=== PATIENT | male | born 1975 | race Caucasian/White ===

== ENCOUNTER 2017-07-21 10:30 | Emergency (ER) | payer OTHER ==
[2017-07-21 10:47] VITALS: RESP 18
--- NOTE | 2017-07-21 10:57 | ED ---
Lower Extremity Injury HPI - General Chief Complaint: Extremity Injury, Lower Stated Complaint: Foot pain Time Seen by Provider: 07/21/17 10:48 Source: patient, RN notes reviewed Mode of arrival: ambulatory Limitations: no limitations - History of Present Illness Initial Comments: 42-year-old male presents with a chief complaint of left foot toe pain. Patient states he stepped wrong on the steps. Patient states that he has some pain on his left foot first digit along with swelling and ecchymosis. Patient states that denies any paresthesias. Patient states he is hammertoe he's had no procedures on his foot before. No prior toe fractures. - Related Data Home Medications Medication Instructions Recorded Confirmed Multivitamins, Thera [Multivitamin 1 tab PO DAILY 07/21/17 07/21/17 (formulary)] Pantoprazole Sodium 20 mg PO DAILY 07/21/17 07/21/17 Previous Rx's Medication Instructions Recorded Ibuprofen [Motrin] 600 mg PO Q8HR PRN #30 tab 07/21/17 Allergies Allergy/AdvReac Type Severity Reaction Status Date / Time bee venom protein (honey bee) AdvReac Swelling Verified 07/21/17 11:16 coffee (Coffea arabica) AdvReac Unknown Verified 07/21/17 11:16 BEER AdvReac Unknown Uncoded 07/21/17 11:16 RAW ONION AdvReac Unknown Uncoded 07/21/17 11:16 Review of Systems ROS Statement: Those systems with pertinent positive or pertinent negative responses have been documented in the HPI. ROS Other: All systems not noted in ROS Statement are negative. Past Medical History Additional Past Medical History / Comment(s): Legally blind History of Any Multi-Drug Resistant Organisms: None Reported Past Surgical History: Appendectomy Past Psychological History: No Psychological Hx Reported Smoking Status: Never smoker Past Alcohol Use History: Rare Past Drug Use History: None Reported General Exam Limitations: no limitations General appearance: alert, in no apparent distress Head exam: Present: atraumatic, normocephalic, normal inspection Neck exam: Present: normal inspection, full ROM. Absent: tenderness, meningismus, lymphadenopathy Respiratory exam: Present: normal lung sounds bilaterally. Absent: respiratory distress, wheezes, rales, rhonchi, stridor Cardiovascular Exam: Present: regular rate, normal rhythm, normal heart sounds. Absent: systolic murmur, diastolic murmur, rubs, gallop, clicks Extremities exam: Present: other (Left foot first digit there is ecchymosis at the MTP joint, tenderness palpation neurovascular intact there is no other tenderness of the foot) Course Vital Signs 07/21/17 10:45 Temperature 98.0 F Pulse Rate 77 Respiratory 18 Rate Blood Pressure 132/88 O2 Sat by Pulse 95 Oximetry Medical Decision Making - Medical Decision Making 42-year-old male presents for left toe injury. X-rays reviewed no acute fracture. Patient has vision to his left foot first digit. Return parameters were discussed. Disposition Clinical Impression: Contusion, toe Disposition: HOME SELF-CARE Condition: Stable Instructions: Foot Contusion (ED) Additional Instructions: Please return to the Emergency Department if symptoms worsen or any other concerns. Prescriptions: Ibuprofen [Motrin] 600 mg PO Q8HR PRN #30 tab PRN Reason: Pain Referrals: Rubén Lam MD [Primary Care Provider] - 1-2 days Time of Disposition: 11:39
--- NOTE | 2017-07-21 11:20 | XR ---
EXAMINATION TYPE: XR foot complete LT DATE OF EXAM: 07/21/2017 COMPARISON: NONE HISTORY: Pain left first digit with bruising TECHNIQUE: Three views are submitted. FINDINGS: The osseous structures are intact and the joint spaces are preserved. There is no acute fracture or dislocation. Diffuse osteopenia. Marked narrowing the first MTP joint and narrowing of the DIP joints of all digits. IMPRESSION: 1. No acute fracture or dislocation. If symptoms persist, follow-up exam in 7 to 10 days could be ob tained.
[2017-07-21 12:04] VITALS: BP 137/84; PULSE 89; TEMP 98.3
== END 2017-07-21 11:59 | disposition home or self-care (01) ==
LOC: EC 10:30
DX: S90.112A Contusion of left great toe without damage to nail, initial encounter (principal); H54.8 Legal blindness, as defined in USA; F17.200 Nicotine dependence, unspecified, uncomplicated; Z91.030 Bee allergy status; Z91.018 Allergy to other foods; X58.XXXA Exposure to other specified factors, initial encounter
CPT/HCPCS: 99283

== ENCOUNTER → 2018-04-01 | Outpatient (CLI) | payer OTHER ==
--- NOTE | 2018-04-01 11:27 | ECHOF ---
Referral Reason:R06.02 shortness of Breath, R60.0 swelling MEASUREMENTS -------- HEIGHT: 180.3 cm WEIGHT: 120.7 kg BP: RVIDd: 2.0 cm (< 3.3) IVSd: 1.3 cm (0.6 - 1.1) LVIDd: 4.7 cm (3.9 - 5.3) LVPWd: 1.1 cm (0.6 - 1.1) IVSs: 1.6 cm LVIDs: 2.9 cm LVPWs: 1.7 cm LAESV Index (A-L): 23.55 ml/m Ao Diam: 3.0 cm (2.0 - 3.7) AV Cusp: 2.5 cm (1.5 - 2.6) LA Diam: 3.7 cm (2.7 - 3.8) MV EXCURSION: 14.230 mm (> 18.000) MV EF SLOPE: 81 mm/s (70 - 150) EPSS: 1.0 cm MV E Randell: 0.73 m/s MV DecT: 171 ms MV A Randell: 0.65 m/s MV E/A Ratio: 1.13 AV maxP.73 mmHg AV meanP.72 mmHg AR PHT: 706 ms RAP: 5.00 mmHg RVSP: 26.53 mmHg FINDINGS -------- Sinus rhythm. This was a technically good study. The left ventricular size is normal. There is mild concentric left ventricular hypertrophy. Overa ll left ventricular systolic function is normal with, an EF between 55 - 60 %. The right ventricle is normal in size and function. Normal LA size by volume 22+/-6 ml/m2. The right atrium is normal in size. The aortic valve is bicuspid. There is mild aortic regurgitation. Peak/mean gradient across the A ortic Valve is 13.73mmHg / 8.72mmHg. The mitral valve is normal. There is trace mitral regurgitation. Trace tricuspid regurgitation present. Right ventricular systolic pressure is normal at < 35 mmHg. The right ventricular systolic pressure, as measured by Doppler, is 26.53mmHg. There is no pulmonic regurgitation present. The aortic root size is normal. Normal inferior vena cava with normal inspiratory collapse consistent with estimated right atrial pre ssure of 5 mmHg. There is no pericardial effusion. CONCLUSIONS -------- 1. Sinus rhythm. 2. This was a technically good study. 3. The left ventricular size is normal. 4. There is mild concentric left ventricular hypertrophy. 5. Overall left ventricular systolic function is normal with, an EF between 55 - 60 %. 6. Normal LA size by volume 22+/-6 ml/m2. 7. The aortic valve is bicuspid. 8. There is mild aortic regurgitation. 9. Peak/mean gradient across the Aortic Valve is 13.73mmHg / 8.72mmHg. 10. There is trace mitral regurgitation. 11. Trace tricuspid regurgitation present. 12. Right ventricular systolic pressure is normal at < 35 mmHg. 13. There is no pulmonic regurgitation present. 14. The aortic root size is normal. 15. Normal inferior vena cava with normal inspiratory collapse consistent with estimated right atrial pressure of 5 mmHg. 16. There is no pericardial effusion. [employer]: Frida Lenz RDCS
== END | disposition home or self-care (01) ==
LOC: RADECHMAIN 08:40
PROVIDERS: ATTEND Internal Medicine
DX: I35.1 Nonrheumatic aortic (valve) insufficiency (principal)
CPT/HCPCS: 93306

== ENCOUNTER → 2018-04-18 | Outpatient (CLI) | payer OTHER ==
--- NOTE | 2018-04-18 10:04 | US ---
EXAMINATION TYPE: US abdomen complete DATE OF EXAM: 04/18/2018 COMPARISON: NONE CLINICAL HISTORY: Abd pain R10.84. EXAM MEASUREMENTS: Liver Length: 18.6 cm Gallbladder Wall: 0.3 cm CBD: 0.5 cm Spleen: 10.5 cm Right Kidney: 10.6 x 4.7 x 5.4 cm Left Kidney: 11.4 x 5.8 x 5.4 cm Pancreas: wnl Liver: wnl Gallbladder: multiple gallstones seen. No pericholecystic fluid. Evidence for sonographic Anne's sign: no CBD: wnl Spleen: wnl Right Kidney: wnl Left Kidney: wnl Upper IVC: wnl Abd Aorta: wnl The liver is homogenous. The intrahepatic portion of the IVC and proximal abdominal aorta are within normal limits. There is evidence of cholelithiasis. Common bile duct is unremarkable. The visuali zed portions of the pancreas are homogenous. The spleen is unremarkable. Kidneys are symmetric and free of hydronephrosis. No renal lesions are seen. IMPRESSION: Cholelithiasis without sonographic evidence of acute cholecystitis.
== END ==
LOC: RADUSWWP 09:26
PROVIDERS: ATTEND Internal Medicine
DX: K80.20 Calculus of gallbladder without cholecystitis without obstruction (principal)
CPT/HCPCS: 76700

== ENCOUNTER 2020-01-21 08:31 | Emergency (ER) | payer OTHER ==
[2020-01-21 08:37] VITALS: RESP 18
[2020-01-21] MEDS ORDERED: PANTOPRAZOLE 40 MG/10 ML VIAL IVP STA (08:45)
[2020-01-21] MEDS ORDERED: HYDROmorphone 0.5 MG/0.5 ML SYRINGE IVP STA (08:45)
[2020-01-21] MEDS ORDERED: ONDANSETRON 4 MG/2 ML VIAL IVP STA (08:45)
[2020-01-21] MEDS ORDERED: SODIUM CHLORIDE 0.9% 1,000 ML IV STA ×2 (08:45)
[2020-01-21] MEDS ORDERED: KETOROLAC 15 MG/ML 1 ML VIAL IVP STA (08:45)
--- NOTE | 2020-01-21 08:48 | ED ---
Abdominal Pain HPI - General Chief Complaint: Abdominal Pain Stated Complaint: N/V/D Time Seen by Provider: 01/21/20 08:38 Source: patient, RN notes reviewed, old records reviewed Mode of arrival: ambulatory Limitations: no limitations - History of Present Illness Initial Comments: Patient is a 44-year-old male presents emergency department today with onset of upper abdominal pain starting at 6 AM. Patient states that he started having vomiting shortly afterwards. Patient states that he has no fevers or chills. Denies any changes in bowel movements. Patient reports the pain is epigastric and right upper and left upper quadrants. Patient states that he's had a history of gallstones and states he's had gallbladder attacks. - Related Data Home Medications Medication Instructions Recorded Confirmed Multivitamins, Thera [Multivitamin 1 tab PO DAILY 07/21/17 07/21/17 (formulary)] Pantoprazole Sodium 20 mg PO DAILY 07/21/17 07/21/17 Previous Rx's Medication Instructions Recorded Ibuprofen [Motrin] 600 mg PO Q8HR PRN #30 tab 07/21/17 Allergies Allergy/AdvReac Type Severity Reaction Status Date / Time bee venom protein (honey bee) AdvReac Swelling Verified 01/21/20 08:36 coffee (Coffea arabica) AdvReac Unknown Verified 01/21/20 08:36 BEER AdvReac Unknown Uncoded 01/21/20 08:36 RAW ONION AdvReac Unknown Uncoded 01/21/20 08:36 Review of Systems ROS Statement: Those systems with pertinent positive or pertinent negative responses have been documented in the HPI. ROS Other: All systems not noted in ROS Statement are negative. Past Medical History Additional Past Medical History / Comment(s): Legally blind History of Any Multi-Drug Resistant Organisms: None Reported Past Surgical History: Appendectomy Past Psychological History: No Psychological Hx Reported Smoking Status: Never smoker Past Alcohol Use History: Rare Past Drug Use History: None Reported General Exam - General Exam Comments Initial Comments: 44 year old male, no distress. Moderate discomfort Limitations: no limitations General appearance: alert, in no apparent distress Head exam: Present: atraumatic, normocephalic, normal inspection Eye exam: Present: normal appearance, PERRL, EOMI. Absent: scleral icterus, c onjunctival injection, periorbital swelling ENT exam: Present: normal exam, mucous membranes moist Neck exam: Present: normal inspection. Absent: tenderness, meningismus, lymphadenopathy Respiratory exam: Present: normal lung sounds bilaterally. Absent: respiratory distress, wheezes, rales, rhonchi, stridor Cardiovascular Exam: Present: regular rate GI/Abdominal exam: Present: tenderness (RUQ tenderness), normal bowel sounds. Absent: soft, distended, guarding, rebound, rigid Extremities exam: Present: normal inspection, full ROM, normal capillary refill. Absent: tenderness, pedal edema, joint swelling, calf tenderness Back exam: Present: normal inspection Neurological exam: Present: alert, oriented X3, CN II-XII intact Psychiatric exam: Present: normal affect, normal mood Skin exam: Present: warm, dry, intact, normal color. Absent: rash Course Vital Signs 01/21/20 08:33 Temperature 98.2 F Pulse Rate 94 Respiratory 18 Rate Blood Pressure 149/98 O2 Sat by Pulse 98 Oximetry Medical Decision Making - Medical Decision Making 44-year-old male presents to the ER today for evaluation for right upper quadrant epigastric abdominal pain starting at 6:00. Reports sharp in nature when it occurred. He said history of cholelithiasis but is never had a HIDA scan follow-up. Patient reports he did eat pizza last night. Patient was given IV fluids labwork obtained. Labs reveal unremarkable. Due to persistent Patient ultrasound showing cholelithiasis and dilated common bile duct. Discussed the Patient may pass a stone. On reevaluation is resting comfortably bed complains of no further pain. Discussed Patient will be discharged at this time with PCP and Gen. surgery follow-up. Advised diet controlled. - Lab Data Result diagrams: 01/21/20 09:11 01/21/20 09:11 Lab Results 01/21/20 01/21/20 01/21/20 Range/Units 09:11 09:11 09:11 WBC 9.0 (3.8-10.6) k/uL RBC 5.14 (4.30-5.90) m/uL Hgb 14.7 (13.0-17.5) gm/dL Hct 44.8 (39.0-53.0) % MCV 87.1 (80.0-100.0) fL MCH 28.7 (25.0-35.0) pg MCHC 32.9 (31.0-37.0) g/dL RDW 13.6 (11.5-15.5) % Plt Count 222 (150-450) k/uL Neutrophils % 82 % Lymphocytes % 10 % Monocytes % 5 % Eosinophils % 1 % Basophils % 0 % Neutrophils # 7.4 (1.3-7.7) k/uL Lymphocytes # 0.9 L (1.0-4.8) k/uL Monocytes # 0.5 (0-1.0) k/uL Eosinophils # 0.1 (0-0.7) k/uL Basophils # 0.0 (0-0.2) k/uL PT (9.0-12.0) sec INR (<1.2) APTT (22.0-30.0) sec Sodium 140 (137-145) mmol/L Potassium 4.0 (3.5-5.1) mmol/L Chloride 107 (98-107) mmol/L Carbon Dioxide 25 (22-30) mmol/L Anion Gap 8 mmol/L BUN 20 (9-20) mg/dL Creatinine 0.95 (0.66-1.25) mg/dL Est GFR (CKD-EPI)AfAm >90 (>60 ml/min/1.73 sqM) Est GFR (CKD-EPI)NonAf >90 (>60 ml/min/1.73 sqM) Glucose 145 H (74-99) mg/dL Calcium 9.1 (8.4-10.2) mg/dL Total Bilirubin 0.5 (0.2-1.3) mg/dL AST 29 (17-59) U/L ALT 33 (4-49) U/L Alkaline Phosphatase 101 (38-126) U/L Total Protein 7.1 (6.3-8.2) g/dL Albumin 4.2 (3.5-5.0) g/dL Amylase 42 (30-110) U/L Lipase 93 (23-300) U/L Urine Color Yellow Urine Appearance Clear (Clear) Urine pH 5.0 (5.0-8.0) Ur Specific [place] 1.018 (1.001-1.035) Urine Protein Negative (Negative) Urine Glucose (UA) Negative (Negative) Urine Ketones Negative (Negative) Urine Blood Negative (Negative) Urine Nitrite Negative (Negative) Urine Bilirubin Negative (Negative) Urine Urobilinogen <2.0 (<2.0) mg/dL Ur Leukocyte Esterase Negative (Negative) 01/21/20 Range/Units 09:11 WBC (3.8-10.6) k/uL RBC (4.30-5.90) m/uL Hgb (13.0-17.5) gm/dL Hct (39.0-53.0) % MCV (80.0-100.0) fL MCH (25.0-35.0) pg MCHC (31.0-37.0) g/dL RDW (11.5-15.5) % Plt Count (150-450) k/uL Neutrophils % % Lymphocytes % % Monocytes % % Eosinophils % % Basophils % % Neutrophils # (1.3-7.7) k/uL Lymphocytes # (1.0-4.8) k/uL Monocytes # (0-1.0) k/uL Eosinophils # (0-0.7) k/uL Basophils # (0-0.2) k/uL PT 9.7 (9.0-12.0) sec INR 0.9 (<1.2) APTT 23.2 (22.0-30.0) sec Sodium (137-145) mmol/L Potassium (3.5-5.1) mmol/L Chloride (98-107) mmol/L Carbon Dioxide (22-30) mmol/L Anion Gap mmol/L BUN (9-20) mg/dL Creatinine (0.66-1.25) mg/dL Est GFR (CKD-EPI)AfAm (>60 ml/min/1.73 sqM) Est GFR (CKD-EPI)NonAf (>60 ml/min/1.73 sqM) Glucose (74-99) mg/dL Calcium (8.4-10.2) mg/dL Total Bilirubin (0.2-1.3) mg/dL AST (17-59) U/L ALT (4-49) U/L Alkaline Phosphatase (38-126) U/L Total Protein (6.3-8.2) g/dL Albumin (3.5-5.0) g/dL Amylase (30-110) U/L Lipase (23-300) U/L Urine Color Urine Appearance (Clear) Urine pH (5.0-8.0) Ur Specific [place] (1.001-1.035) Urine Protein (Negative) Urine Glucose (UA) (Negative) Urine Ketones (Negative) Urine Blood (Negative) Urine Nitrite (Negative) Urine Bilirubin (Negative) Urine Urobilinogen (<2.0) mg/dL Ur Leukocyte Esterase (Negative) - Radiology Data Radiology results: report reviewed Right upper quadrant ultrasound shows Right hepatic cyst. Cholelithiasis. The largest stone measures 2 cm. Dilated common bile duct. Disposition Clinical Impression: Biliary colic Disposition: HOME SELF-CARE Condition: Good Instructions (If sedation given, give patient instructions): Biliary Colic (ED) Additional Instructions: Pt is to have low fat diet. Please follow up with family doctor if symptoms have not improved over the next two days. Please return to the emergency room if your symptoms increase or worsen or for any other concerns. Is patient prescribed a controlled substance at d/c from ED?: No Referrals: Rubén Lam MD [Primary Care Provider] - 1-2 days Richard Tamayo MD [STAFF PHYSICIAN] - 1-2 days Time of Disposition: 11:00
[2020-01-21 09:34] LABS: ALT 33 U/L (4-49); AST 29 U/L (17-59); African American GFR (CKD) >90 (>60 ml/min/1.73 sqM); Albumin 4.2 g/dL (3.5-5.0); Alkaline Phosphatase 101 U/L (38-126); Amylase 42 U/L (30-110); Anion Gap 8 mmol/L; Blood Urea Nitrogen 20 mg/dL (9-20); Calcium 9.1 mg/dL (8.4-10.2); Carbon Dioxide 25 mmol/L (22-30); Chloride 107 mmol/L (98-107); Glucose 145 mg/dL (74-99); Non-African American GFR(CKD) >90 (>60 ml/min/1.73 sqM); Sodium 140 mmol/L (137-145); Total Bilirubin 0.5 mg/dL (0.2-1.3); Total Protein 7.1 g/dL (6.3-8.2)
[2020-01-21 09:37] LABS: INR 0.9 (<1.2); Partial Thromboplastin Time 23.2 sec (22.0-30.0); Prothrombin Time 9.7 sec (9.0-12.0)
[2020-01-21 09:38] LABS: Basophils % (A) 0 %; Eosinophils # (A) 0.1 k/uL (0-0.7); Eosinophils % (A) 1 %; HCT 44.8 % (39.0-53.0); HGB 14.7 gm/dL (13.0-17.5); Lymphocytes # (A) 0.9 k/uL (1.0-4.8); Lymphocytes % (A) 10 %; MCH 28.7 pg (25.0-35.0); MCHC 32.9 g/dL (31.0-37.0); MCV 87.1 fL (80.0-100.0); Monocytes # (A) 0.5 k/uL (0-1.0); Monocytes % (A) 5 %; Neutrophils # (A) 7.4 k/uL (1.3-7.7); Neutrophils % (A) 82 %; Platelet Count 222 k/uL (150-450); RBC 5.14 m/uL (4.30-5.90); RDW 13.6 % (11.5-15.5)
[2020-01-21 09:50] LABS: Appearance,Urine Clear (Clear); Bilirubin,Urine Negative (Negative); Blood,Urine Negative (Negative); Color,Urine Yellow; Glucose,Urine (UA) Negative (Negative); Ketones,Urine Negative (Negative); Leukocyte Esterase,Urine Negative (Negative); Nitrite,Urine Negative (Negative); Protein,Urine Negative (Negative); Specific Gravity,Urine 1.018 (1.001-1.035); Urobilinogen,Urine <2.0 mg/dL (<2.0)
--- NOTE | 2020-01-21 10:41 | US ---
EXAMINATION TYPE: US gallbladder DATE OF EXAM: 01/21/2020 COMPARISON: CLINICAL HISTORY: RUQ tenderness. hx gallstones EXAM MEASUREMENTS: Liver Length: 19.4 cm Gallbladder Wall: 0.3 cm CBD: 0.9 cm Right Kidney: 10.4 x 4.7 x 5.2 cm Pancreas: Echogenic in appearance. Tail obscured by overlying bowel gas. Body= 2.0 cm. Liver: Right lobe cystic appearing lesion - 2.6 x 2.8 x 3.0 cm. Enlarged and heterogenous in appear ance. Gallbladder: Multiple mobile stones, largest- 2.0 cm Evidence for sonographic Anne's sign: neg CBD: dilated. Portion of CBD visualized due to overlying bowel gas Right Kidney: No hydronephrosis or masses seen IMPRESSION: 1. Right hepatic cyst. 2. Cholelithiasis. 3. Dilated common bile duct
[2020-01-21 11:15] VITALS: BP 122/84; PULSE 72; TEMP 98.5
== END 2020-01-21 11:15 | disposition home or self-care (01) ==
LOC: EC 08:31
DX: K80.50 Calculus of bile duct without cholangitis or cholecystitis without obstruction (principal); H54.8 Legal blindness, as defined in USA; Z91.018 Allergy to other foods; Z91.030 Bee allergy status; Z91.048 Other nonmedicinal substance allergy status; Z90.89 Acquired absence of other organs
CPT/HCPCS: 36415; 80053; 82150; 83690; 85025; 85610; 85730; 81003; 76705; 99285; 96374; 96375 ×3; 96361 ×2; J2405; J1885; C9113; J1170

== ENCOUNTER → 2023-07-08 | Outpatient (CLI) | payer OTHER ==
--- NOTE | 2023-07-08 10:29 | US ---
EXAMINATION TYPE: US abdomen complete DATE OF EXAM: 07/08/2023 COMPARISON: US 04/18/2018 US 01/21/2020 CLINICAL INDICATION: Male, 48 years old with history of R10.11 RIGHT UPPER QUADRANT PAIN; TECHNIQUE: Multiple sonographic images of the abdomen are obtained. FINDINGS: EXAM MEASUREMENTS: Liver Length: 17.9 cm Gallbladder Wall: 0.3 cm CBD: 0.4 cm Spleen: 9.4 cm Right Kidney: 11.6 x 5.8 x 4.8 cm Left Kidney: 11.9 x 5.9 x 4.9 cm Pancreas: wnl Liver: Cyst redemonstrated = 2.5 x 2.6 x 2.5 cm Gallbladder: Stone redemonstrated, no wall thickening or pericholecystic fluid. Evidence for sonographic Anne's sign: No CBD: wnl Spleen: wnl Right Kidney: wnl Left Kidney: wnl Upper IVC: wnl Abd Aorta: wnl The liver is homogenous with simple cysts present. The intrahepatic portion of the IVC and proximal abdominal aorta are within normal limits. Multiple echogenic foci in the gallbladder lumen are presen t. Common bile duct is unremarkable. The visualized portions of the pancreas are homogenous. The s pleen is unremarkable. Kidneys are symmetric and free of hydronephrosis. No renal lesions are seen. IMPRESSION: 1. No evidence for acute process. 2. Liver cyst. 3. Cholelithiasis.
== END | disposition home or self-care (01) ==
LOC: RADUSWWP 09:07
PROVIDERS: ATTEND Internal Medicine
DX: K80.20 Calculus of gallbladder without cholecystitis without obstruction (principal); K76.89 Other specified diseases of liver
CPT/HCPCS: 76700